=== PATIENT | female | born 1930 | race Caucasian/White ===

== ENCOUNTER 2017-08-20 21:00 | Emergency (ER) | payer OTHER ==
--- NOTE | 2017-08-20 21:45 | EDPHY ---
H & P Time Seen by Provider: 08/20/17 21:10 HPI/ROS: This patient presents with dental infection. She admits that she has or bold tooth decay to left upper premolars and just return from 1 month in the [place]. Well EN route [place] the [place] She started developing dental pain and facial swelling. She called her dentist today was prescribed Amoxil 875 twice daily. She took her 1st dose of that early in the afternoon but complains of severe pain onset of mild facial swelling in the left cheek associated with this prompting her visit for further evaluation. Her daughter drove her in by private vehicle. She took ibuprofen Tylenol prior to arrival without significant improvement. She notes tenderness to percussion to the affected area and no other exacerbating factors. ROS: No fevers or chills. No other constitutional symptoms. HEENT: No dental trauma or facial trauma recently. Neuro: No headache. No confusion. No numbness or tingling. Pulmonary: No shortness of breath except baseline from her pulmonary fibrosis without change. Cardiovascular: No lightheadedness or chest pain. GI: No nausea vomiting 7 point ROS is otherwise negative Past Medical/Surgical History: Pulmonary fibrosis Colon cancer Social History: Just return from the [place]. No drug use. No alcohol use. Smoking Status: Never smoked Physical Exam: Physical Exam Vital signs are normal. General: No acute distress HEENT: Nose: Clear bilaterally. No sinus tenderness to percussion. She has mild left cheek swelling. Oropharynx: No erythema or exudates. No dysphonia. No drooling or stridor. She has to throw castañeda down to the gumline and left upper premolars with a fluctuance to the gum adjacent to this up past the buccal fold with mild associated cheek swelling. She has exquisite tenderness to the area. Eyes: Pupils equal and react to light. Extraocular motions are intact. Neck: Supple with no meningismus. No lymphadenopathy Lungs: Clear to auscultation bilaterally with no rales, rhonchi or wheeze. No respiratory distress. Cardiac: Regular rate and rhythm with no murmur gallop or rub Skin: No rash or pallor. Neuro: Alert with no focal deficits noted. Constitutional: Initial Vital Signs Temperature (C) 37.0 C 08/20/17 21:14 Heart Rate 90 08/20/17 21:14 Respiratory Rate 16 08/20/17 21:14 Blood Pressure 145/96 H 08/20/17 21:14 O2 Sat (%) 90 L 08/20/17 21:14 O2 Delivery Mode Room Air Allergies/Adverse Reactions: Sulfa (Sulfonamide Antibiotics) Allergy (Verified 08/20/17 21:12) Rash Home Medications: Medication Instructions Recorded Atenolol [Atenolol 25 mg] 25 mg PO DAILY 08/07/10 Levothyroxine [Levothroid, 100 mcg PO DAILY@1000 08/07/10 Synthroid] SIMVASTATIN [Zocor] 20 mg PO DAILY 08/07/10 Amoxicillin/Clavulanate Pot 875 mg PO BID #14 tab 08/20/17 [Augmentin 875 MG TAB (*)] Esbriet 08/20/17 Omeprazole 08/20/17 Ramipril 08/20/17 traMADol [Ultram 50 mg (*)] 50 - 100 mg PO Q4 PRN #12 tab 08/20/17 MDM/Departure - MDM Procedures: I&D dental abscess After verbal consent formed a dental block using a 50 50 mix of 0.5% Marcaine and 1% plain lidocaine, 27 gauge needle, 2.5 mL at the buccal fold superior to the affected teeth with relief of pain followed by incision of fluctuant area using a 11. Scalpel blade after cleaning with peroxide. There is a small amount of purulent discharge. tess [place] tech assisted by using [place] suction to the affected area during the procedure. Patient tolerated this well. There were no complications. Medications Given: Discontinued Medications Tramadol HCl (Ultram) 50 mg PO EDNOW ONE Stop: 08/20/17 21:47 Last Admin: 08/20/17 21:54 Dose: 50 mg ED Course/Re-evaluation: Discussion: Patient with dental abscess without evidence of significant facial cellulitis, [employer] infection or sepsis. Formed I&D with plan to switch her from Amoxil to Augmentin. Provided a script for this as well as script for tramadol. She will follow up with her dentist. She understands need to return emergency department should she develop worsening despite the treatment plan. - Depart Disposition: Home, Routine, Self-Care Clinical Impression: Dental abscess Condition: Good Instructions: Tramadol (By mouth), Dental Abscess (ED) Additional Instructions: Diagnosis: Dental abscess Plan: Continue ibuprofen Tylenol for pain Tramadol in addition if needed for pain that prevents sleep or severe despite ibuprofen Tylenol No driving, alcohol on tramadol. Stop the Amoxil and start Augmentin antibiotic 2 times a day. Take a probiotic and/or yogurt while on this to prevent diarrhea. Follow up with her dentist this week. Return emergency department if he develops fevers or worsening symptoms despite the treatment plan. Prescriptions: Amoxicillin/Clavulanate Pot [Augmentin 875 MG TAB (*)] 875 mg PO BID #14 tab traMADol [Ultram 50 mg (*)] 50 - 100 mg PO Q4 PRN #12 tab PRN Reason: breakthrough pain Referrals: Lulu Jc MD [Primary Care Provider] - As per Instructions
[2017-08-20] MEDS ORDERED: traMADol 50 MG TAB PO ONE (21:46)
[2017-08-20 22:13] VITALS: BP 138/83
== END 2017-08-20 22:01 | disposition home or self-care (01) ==
LOC: CED 21:00
PROC: 0C953ZZ Drainage of Upper Gingiva, Percutaneous Approach (ICD-10-PCS; principal; 2017-08-20)
DX: K04.7 Periapical abscess without sinus (principal); Z85.038 Personal history of other malignant neoplasm of large intestine

== ENCOUNTER 2017-11-20 09:46 | Day surgery (SDC) | payer OTHER ==
[2017-11-20] MEDS ORDERED: fentaNYL 100 MCG/2 ML INJ IVP PRN (10:09)
[2017-11-20] MEDS ORDERED: FLUMAZENIL 0.5 MG/5 ML MDV IVP PRN (10:09)
[2017-11-20] MEDS ORDERED: NALOXONE HCL 0.4 MG/ML INJ IVP PRN (10:09)
[2017-11-20] MEDS ORDERED: MIDAZOLAM 2 MG/2 ML VIAL IVP PRN (10:09)
[2017-11-20] MEDS ORDERED: MEPERIDINE 25 MG/ML SYR IVP PRN (10:09)
[2017-11-20] MEDS ORDERED: NS 1,000 ML IV SCH (10:15)
[2017-11-20 11:01] LABS: INR 1.14 (0.83-1.16); PROTIME(PATIENT) 14.8 SEC (12.0-15.0)
--- NOTE | 2017-11-20 11:39 | PDPROPOC ---
Sedation Plan of Care Sedation Plan of Care: vital signs stable, mental status noted, patient educated of risks, benefits, alternatives, patient can tolerate sedation ASA Classification: ASA 2 Planned drugs: fentanyl, midazolam Mallampati Score: Class 2 Mallampati Reference Image: Patient passed 3-3-2 rule?: Yes
--- NOTE | 2017-11-20 11:39 | PDRADPRE ---
Radiology History & Physical Indication for procedure: other (Right pelvic pain with lytic mass on PET/CT) Significant medical history: lung disease Surgical history: Hemicolectomy for colon cancer. Thoracic spine surgery for plasmacytoma Home medications: Levothyroxine [Levothroid, Synthroid] 100 mcg PO DAILY@1000 08/07/10 [Last Taken 11/20/17] SIMVASTATIN [Zocor] 20 mg PO DAILY 08/07/10 [Last Taken 11/19/17] Omeprazole 40 mg 08/20/17 [Last Taken 11/19/17] Ramipril 2.5 mg PO 08/20/17 [Last Taken 11/20/17] Allergies/Adverse Reactions: Sulfa (Sulfonamide Antibiotics) Allergy (Verified 08/20/17 21:12) Rash Mental status: A&Ox3 Heart exam: regular rate and rhythm Lungs exam: clear to auscultation Mallampati Score: Class 1
[2017-11-20] MEDS ORDERED: NALOXONE HCL 0.4 MG/ML INJ ONE (11:40)
[2017-11-20] MEDS ORDERED: FLUMAZENIL 0.5 MG/5 ML MDV IVP ONE (11:40)
[2017-11-20] MEDS ORDERED: fentaNYL 100 MCG/2 ML INJ ONE (11:41)
[2017-11-20] MEDS ORDERED: MIDAZOLAM 2 MG/2 ML VIAL ONE (11:41)
[2017-11-20] MEDS ORDERED: LIDOCAINE 1% 300 MG/30 ML SDV ONE (12:00)
[2017-11-20 14:03] VITALS: BP 123/73
== END 2017-11-20 13:40 | disposition home or self-care (01) ==
LOC: FIMAGING 09:46
PROVIDERS: ATTEND Internal Medicine Hematology & Oncology
PROC: 0QB23ZX Excision of Right Pelvic Bone, Percutaneous Approach, Diagnostic (ICD-10-PCS; principal; 2017-11-20 12:43)
DX: C90.30 Solitary plasmacytoma not having achieved remission (principal); Z85.038 Personal history of other malignant neoplasm of large intestine
CPT/HCPCS: 88184-90; 88185-91; J2250; J2310; J3010

== ENCOUNTER → 2017-12-16 | Outpatient (CLI) | payer OTHER | LOC: FIMAGING 11:03 | PROVIDERS: ATTEND Internal Medicine Hematology & Oncology | DX: Z13.820 Encounter for screening for osteoporosis (principal); M81.0 Age-related osteoporosis without current pathological fracture; Z78.0 Asymptomatic menopausal state; Z87.81 Personal history of (healed) traumatic fracture ==

== ENCOUNTER → 2018-03-09 | Outpatient (CLI) | payer OTHER | LOC: BMCIMAGING 14:20 | PROVIDERS: ATTEND Family Medicine | DX: S79.912A Unspecified injury of left hip, initial encounter (principal) ==

== ENCOUNTER → 2018-05-01 | Outpatient (CLI) | payer OTHER | LOC: FIMAGING 16:04 | PROVIDERS: ATTEND Internal Medicine Hematology & Oncology | DX: R94.4 Abnormal results of kidney function studies (principal); Z85.038 Personal history of other malignant neoplasm of large intestine ==

== ENCOUNTER 2018-06-24 18:16 | Inpatient (IN) | payer OTHER ==
[2018-06-24] MEDS ORDERED: NS 1,000 ML IV ONE (18:36)
--- NOTE | 2018-06-24 18:36 | EDPHY ---
H & P Stated Complaint: sent from urgent care, dyspnic, febrile, lethargic, vomiting Time Seen by Provider: 06/24/18 18:36 HPI/ROS: HPI CHIEF COMPLAINT: Worsening shortness of breath, cough, vomiting, fever HISTORY OF PRESENT ILLNESS: This is 88-year-old female she arrives to the emergency room from urgent care for progressively worsening shortness of breath , cough, vomiting, fever, lethargy. The patient has history of pulmonary fibrosis as well as multiple myeloma. She went to urgent care today and was referred to the emergency room for further evaluation. Urgent care reports that she had a temperature of a 102 degrees. She arrives to the emergency room coughing and vomiting. Past Medical History: Pulmonary fibrosis, multiple myeloma Past Surgical History: Denies recent surgery Social History: Denies drugs alcohol tobacco. Family History: Noncontributory ROS REVIEW OF SYSTEMS: 10 Systems were reviewed and negative with the exception of the elements mentioned in the history of present illness. Exam Constitutional triage nursing summary reviewed, vital signs reviewed, awake/ alert. Tachycardic Eyes normal conjunctivae and sclera, EOMI, PERRLA. HENT normal inspection, atraumatic, moist mucus membranes, no epistaxis, neck supple/ no meningismus, no raccoon eyes. Respiratory clear to auscultation bilaterally, normal breath sounds, no respiratory distress, no wheezing. Cardiovascular tachycardia, regular rhythm, no murmur, no edema, distal pulses normal. Gastrointestinal soft, non-tender, no rebound, no guarding, normal bowel sounds, no distension, no pulsatile mass. Genitourinary no CVA tenderness. Musculoskeletal no midline vertebral tenderness, full range of motion, no calf swelling, no tenderness of extremities, no meningismus, good pulses, neurovascularly intact. Skin pink, warm, & dry, no rash, skin atraumatic. Neurologic awake, alert and oriented x 3, AAOx3, moves all 4 extremities equally, motor intact, sensory intact, CN II-XII intact, normal cerebellar, normal vision, normal speech. Psychiatric normal mood/affect. Heme/Lymph/Immune no lymphadenopathy. Differential Diagnosis: Differential diagnosis includes but is not limited to: ACS, atypical chest pain, pneumothorax, pneumonia, pulmonary embolism, aortic dissection, congestive heart failure, tumor, musculoskeletal pain, esophageal pain, GERD, peptic ulcer disease, pancreatitis Medical Decision Making: Plan for this patient IV establishment with blood draw , Barbarab breathing treatment, EKG, troponin, BNP, blood cultures and lactic will be you her chest x-ray from urgent care. Re-evaluation: EKG interpretation by me on record in [employer] system. Impression time of EKG 1858, sinus tach 106, no signs of acute ischemia. CT angiogram of the chest shows pneumonia. Plan for hospital admission for pneumonia. Plan for admission for pneumonia Will repeat lactic acid. IV Rocephin and IV azithromycin given. IV fluid bolus. Updated family agree for admission. Spoke with Dr. Goldstein, agrees to admit 2149 Patient agrees for admission. Source: Patient - Personal History Current Tetanus/Diphtheria Vaccine: Yes Current Tetanus Diphtheria and Acellular Pertussis (TDAP): Yes Tetanus Vaccine Date: 2009 - Medical/Surgical History Hx Asthma: No Hx Chronic Respiratory Disease: Yes Hx Diabetes: No Hx Cardiac Disease: Yes Hx Renal Disease: No Hx Cirrhosis: No Hx Alcoholism: No Hx HIV/AIDS: No Hx Splenectomy or Spleen Trauma: No Other PMH: PMH:COLON CA, BACK INJ, PLASMACYTOMA, PULMONARY FIBROSIS, O2 AT NIGHT FOR SLEEP APNEA, ARYTHMIAS,. PSH: PART COLON REMOVED, BACK SURGERY, CARDIAC STRESS TEST, ECHO, - Social History Smoking Status: Never smoked Constitutional: Initial Vital Signs Heart Rate 114 H 06/24/18 18:22 Respiratory Rate 18 06/24/18 18:22 Blood Pressure 171/124 H 06/24/18 18:22 O2 Sat (%) 90 L 06/24/18 18:22 O2 Delivery Mode Nasal Cannula O2 (L/minute) 2 Allergies/Adverse Reactions: Sulfa (Sulfonamide Antibiotics) Allergy (Verified 08/20/17 21:12) Rash Home Medications: Medication Instructions Recorded SIMVASTATIN [Zocor] 20 mg PO DAILY 08/07/10 Omeprazole 40 mg PO DAILY 08/20/17 Acyclovir [Zovirax 200 mg (*)] 200 mg PO BID 06/24/18 Aspirin EC [Aspirin EC 81 mg (*)] 81 mg PO DAILY 06/24/18 Bortezomib [Velcade Sc Conc] 2.2 mg SC WE 06/24/18 Cholecalciferol Vit D3 [Vitamin D3 3,000 units PO DAILY 06/24/18 (*)] Cyanocobalamin [Vitamin B12 (*)] 1,000 mcg PO DAILY 06/24/18 Dexamethasone [Decadron 4 MG (*)] 12 mg PO WE 06/24/18 Herbals/Supplements -Info Only 1 ea PO DAILY 06/24/18 Levothyroxine [Synthroid 100 mcg 100 mcg PO DAILY06 06/24/18 (*)] Vit A/Vit C/Vit E/Zinc/Copper 1 each PO DAILY 06/24/18 [Preservision Tablet] Xgeva Injection 120 mg SC Q28D 06/25/18 Medical Decision Making - Data Points Laboratory Results: Laboratory Results 06/24/18 18:50 06/24/18 18:50 Medications Given: Acyclovir (Zovirax) 200 mg PO BID DALE Stop: 07/25/18 10:14 Last Admin: 06/25/18 11:32 Dose: 200 mg Aspirin Buffered (Aspirin Ec) 81 mg PO DAILY DALE Stop: 12/22/18 10:14 Last Admin: 06/25/18 11:32 Dose: 81 mg Cholecalciferol (Vitamin D) 3,000 units PO DAILY DALE Stop: 12/22/18 10:14 Last Admin: 06/25/18 11:32 Dose: 3,000 units Guaifenesin/Dextromethorphan (Robitussin Dm Oral Liquid) 10 ml PO Q4HRS PRN PRN Reason: Cough, Moderate Stop: 12/22/18 03:24 Last Admin: 06/25/18 11:33 Dose: 10 ml Levothyroxine Sodium (Synthroid) 100 mcg PO DAILY06 [facility] Stop: 12/22/18 10:14 Last Admin: 06/25/18 11:32 Dose: 100 mcg Prednisone (Prednisone) 40 mg PO DAILY DALE Stop: 12/22/18 14:14 Last Admin: 06/25/18 15:00 Dose: 40 mg Vitamin B Complex (Vitamin B12) 1,000 mcg PO DAILY DALE Stop: 12/22/18 10:14 Last Admin: 06/25/18 11:36 Dose: 1,000 mcg Discontinued Medications Acetaminophen (Tylenol) 1,000 mg PO EDNOW ONE Stop: 06/24/18 21:57 Last Admin: 06/24/18 21:57 Dose: 1,000 mg Albuterol/Ipratropium (Duoneb) 3 ml IH EDNOW ONE Stop: 06/24/18 18:45 Last Admin: 06/24/18 18:58 Dose: 3 ml Azithromycin (Zithromax) 250 mg PO DAILY DALE PRN Reason: Protocol Stop: 07/25/18 10:44 Last Admin: 06/25/18 12:05 Dose: Not Given Dexamethasone (Decadron) 12 mg PO WE DALE Stop: 12/22/18 10:14 Last Admin: 06/25/18 12:05 Dose: Not Given Sodium Chloride (Ns) 1,000 mls @ 0 mls/hr IV EDNOW ONE; Wide Open PRN Reason: Protocol Stop: 06/24/18 18:37 Last Admin: 06/24/18 19:06 Dose: Not Given Sodium Chloride (Ns) 500 mls @ 0 mls/hr IV ONCE ONE PRN Reason: Wide Open Stop: 06/24/18 19:06 Last Admin: 06/24/18 19:12 Dose: 500 mls Azithromycin 500 mg/ Sodium (Chloride) 255 mls @ 255 mls/hr IV EDNOW ONE PRN Reason: Protocol Stop: 06/24/18 22:31 Last Admin: 06/24/18 22:22 Dose: 255 mls Ceftriaxone Sodium 2 gm/ (Sodium Chloride) 50 mls @ 100 mls/hr IV EDNOW ONE PRN Reason: Protocol Stop: 06/24/18 22:01 Last Admin: 06/24/18 21:56 Dose: 50 mls Sodium Chloride (Ns) 500 mls @ 0 mls/hr IV ONCE ONE PRN Reason: Wide Open Stop: 06/24/18 21:45 Last Admin: 06/24/18 21:53 Dose: 500 mls Sodium Chloride (Ns) 1,000 mls @ 75 mls/hr IV CONT DALE Stop: 06/25/18 12:49 Last Admin: 06/25/18 00:19 Dose: 1,000 mls Ceftriaxone Sodium/Dextrose (Rocephin 1 Gm (Premix)) 50 mls @ 100 mls/hr IV DAILY DALE PRN Reason: Protocol Stop: 07/25/18 10:59 Last Admin: 06/25/18 12:05 Dose: Not Given Ibuprofen (Motrin) 400 mg PO EDNOW ONE Stop: 06/24/18 21:57 Last Admin: 06/24/18 21:57 Dose: 400 mg Ondansetron HCl (Zofran) 4 mg IVP EDNOW ONE Stop: 06/24/18 18:54 Last Admin: 06/24/18 18:57 Dose: 4 mg Ondansetron HCl (Zofran) 4 mg IVP EDNOW ONE Stop: 06/24/18 20:04 Last Admin: 06/24/18 20:04 Dose: 4 mg Point of Care Test Results: Chemistry 06/24/18 18:56 POC Troponin I 0.00 ng/mL ng/mL (0.00-0.08) Departure - Departure Disposition: [facility] Inpatient Acute Clinical Impression: Pneumonia, Hypoxia Condition: Fair
[2018-06-24] MEDS ORDERED: IPRATROPIUM/ALBUTEROL 3 ML DEYVIAL IH ONE (18:44)
[2018-06-24] MEDS ORDERED: ONDANSETRON 4 MG/2 ML VIAL IVP ONE ×2 (18:53→20:03)
[2018-06-24 19:01] LABS: PLATELET COUNT 142 10^3/uL (150-400)
[2018-06-24] MEDS ORDERED: NS 500 ML IV ONE ×2 (19:05→21:44)
[2018-06-24 19:10] LABS: INR 1.11 (0.83-1.16); PROTIME(PATIENT) 13.9 SEC (12.0-15.0)
[2018-06-24] MEDS ORDERED: IOPAMIDOL (ISOVUE 370) 100 ML BTL IV ONE (19:45)
[2018-06-24] MEDS ORDERED: ONDANSETRON 4 MG/2 ML VIAL ONE (19:58)
[2018-06-24] MEDS ORDERED: AZITHROMYCIN IV 500 MG in NS 250 ML IV ONE (21:32)
[2018-06-24] MEDS ORDERED: ACETAMINOPHEN 500 MG TAB ONE (21:55)
[2018-06-24] MEDS ORDERED: IBUPROFEN 200 MG TAB PO ONE ×2 (21:55→21:56)
[2018-06-24] MEDS ORDERED: ACETAMINOPHEN 500 MG TAB PO ONE (21:56)
[2018-06-24] MEDS ORDERED: ACETAMINOPHEN 325 MG TAB PO PRN (23:19)
[2018-06-24] MEDS ORDERED: ONDANSETRON DISINTEGRATING 4 MG TAB PO PRN (23:19)
[2018-06-24] MEDS ORDERED: ONDANSETRON 4 MG/2 ML VIAL IVP PRN (23:19)
[2018-06-24] MEDS ORDERED: NS 1,000 ML IV SCH (23:30)
[2018-06-25] MEDS ORDERED: BENZONATATE 100 MG CAP PO PRN (03:25)
[2018-06-25] MEDS: GUAIFENESIN/DM 10 ML UDCUP PO PRN ×3 (04:31→21:17)
[2018-06-25 04:33] LABS: PLATELET COUNT 101 10^3/uL (150-400)
--- NOTE | 2018-06-25 04:49 | GHP ---
[f rep st] HISTORY AND PHYSICAL DATE OF ADMISSION: 06/24/2018 PCP: Lulu Jc MD. SOURCE: Patient provides history. She does defer some questions to her daughter with whom she lives currently. EMR was reviewed and case discussed with ED provider. HISTORY OF PRESENT ILLNESS: This is a pleasant 88-year-old female with past medical history significant for radiation induced pulmonary fibrosis on oxygen at with SUE, multiple myeloma, hypothyroidism, hyperlipidemia, and a remote history of colon cancer status post surgery, radiation who presents to the emergency department today with complaints of several days of worsening cough and shortness of breath. Daughter reports the patient became ill with respiratory symptoms approximately 4-5 days ago on Saturday, today being Saturday. No known sick contacts. She began to have nonproductive cough, fevers and some vomiting. Patient also has been having increased progressive shortness of breath and wheezing. The fevers and chills began over the weekend. These were not measured at home. They were subjective and also patient having chills. In the emergency department, patient received DuoNeb, Tylenol, Azithromycin Rocephin, ibuprofen and Zofran for bilateral lower lobe and left upper lobe pneumonia. Since arrival to the floor, patient has had persistent cough. She has continued to have some wheezing, but that has improved following additional DuoNeb. The patient is requesting some cough medicine. REVIEW OF SYSTEMS: Ten systems reviewed, negative except as noted above. ALLERGIES: Sulfa. HOME MEDICATIONS: Pending pharmacy review omeprazole, aspirin, acyclovir, Co- Q10, glucosamine, PreserVision, vitamin B12, vitamin D, simvastatin, levothyroxine, Decadron, Prolia, Velcade. 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 PAST SURGICAL HISTORY: Partial colectomy, back surgery, deviated septum. FAMILY HISTORY: Negative for lung disease. Sister did have "heart issues". SOCIAL HISTORY: Patient currently living with her daughter. She does own a home just a few doors down. She does not smoke. She does have occasional alcohol intake and has recently started edibles with some improvement. PHYSICAL EXAM: VITAL SIGNS: Blood pressure 171/124, heart rate 114, respiratory rate 18, O2 saturation is 90% on 2 L by nasal cannula upon arrival to the emergency department. Current vital signs available blood pressure is 103/85, heart rate 111, respiratory rate 22, O2 saturation 87% on 2 L by nasal cannula, temperature 38.1. A bedside repeat temperature 36.8. GENERAL: No acute distress. Very pleasant, frail elderly female is lying quietly in bed. Her daughter is at bedside. HEAD: Normocephalic, atraumatic. EYES: Extraocular muscles appear grossly intact. No apparent scleral icterus. ENT: Mucous membranes appear slightly dry. No apparent nasal discharge. NECK: Supple. Trachea midline. CV: Regular rate and rhythm. Slightly distant sounds due to respiratory noises. No apparent murmurs, rubs, or gallops. RESPIRATORY: Unlabored breathing. The patient does have intermittent dry cough. She has diffuse mild wheezing, but good air movement. ABDOMEN: Obese soft, nontender to palpation. No rebound, guarding, or masses. Positive bowel sounds. : No suprapubic tenderness to palpation. No Callahan catheter in place. MUSCULOSKELETAL: The patient is able to move all extremities while lying in bed. NEURO: Grossly nonfocal, no facial drooping. Moves all extremities. PSYCH: Thought process content and questions do appear appropriate. Patient is quite fatigued, did defer some of her questions to her daughter. LABORATORY STUDIES: WBC 5.14, H and H is 12.7, 39.7. MCV of 103.4, platelet count 142, neutrophil percent 89.3%. PT 13.9, INR 1.11, PTT is 25.9. Initial lactic acid 2.4, repeat is 2.0. Sodium 137, potassium 4.3, chloride is 104, CO2 is 19, anion gap 12, BUN 19, creatinine is 1.1 GFR of 47, glucose 263, calcium is 8.6, magnesium is 1.8, total bilirubin is 0.5, conjugated 0.2, ALT is 18, AST is 22, alkaline phosphatase is 117. Troponin negative. Total protein 6.2, albumin is 4.1, lipase is 39. UA: Specific gravity of 1.020 with a pH of 5.0, protein 1+, leuk esterase 1+, WBCs 25-50, renal epithelial cells trace, glucose, 3+. CT angio of the chest showing suboptimal without definite pulmonary thromboemboli. Multiple myeloma thoracic spine, bilateral lower lobe left upper lobe pneumonia. No pleural effusion, pneumothorax, cardiomegaly, and coronary atherosclerosis. EKG reviewed myself. Sinus tachycardia in the 100s. QTc is 464. No acute ST changes. Borderline NV interval. ASSESSMENT AND PLAN: Pleasant 88-year-old female with history of pulmonary fibrosis who presents to the emergency department with complaints of cough, shortness of breath, fever, vomiting. 1. Bilateral pneumonia. The patient has been started on azithromycin Rocephin. She has not been hospitalized in the last 90 days. Blood cultures pending. Patient currently without a productive cough. 2. Sepsis without organ dysfunction. Patient meets criteria with fever, tachycardia, tachypnea, and lactic acidosis. Blood cultures as noted above. Antibiotics of Azithromycin and Rocephin. The patient's vital signs have improved. Lactic acid normalized after IV fluid bolus in the emergency department. Blood cultures pending. 3. Acute on chronic hypoxia. Continue with supplemental oxygen. We will hold off on addition of steroids at this time. 4. Hyperglycemia. The patient's previous A1c was 7.8. She does receive weekly dexamethasone which may be contributing. She is not currently on any antihyperglycemics. Blood sugars currently quite elevated. Will place patient on a low-dose sliding scale. 5. Obstructive sleep apnea. Continue oxygen supplementation. 6. Hypothyroidism, continue replacement. 7. Hyperlipidemia. Statin. 8. Gastroesophageal reflux disease. Continue omeprazole. 9. Fluid, electrolyte, nutrition, some gentle intravenous fluid hydration overnight. Electrolyte monitoring, replacement if needed. Diet as tolerated. 10. Prophylaxis: SCDs. Holding anticoagulation. Will consider Lovenox if patient should stay additional day. She does have a history of multiple myeloma. Current H and H are within acceptable limits. 11. Code status: DNR/DNI 12. Disposition: Patient has been admitted to observation status on the med surg floor. We will reassess in the morning. /[id number]/MODL MTDD
[2018-06-25] MEDS ORDERED: DEXAMETHASONE 4 MG TAB PO SCH (10:15)
[2018-06-25] MEDS ORDERED: AZITHROMYCIN 250 MG TAB PO SCH ×2 (10:45→21:00)
[2018-06-25] MEDS: LEVOTHYROXINE 100 MCG TAB PO SCH (11:32)
[2018-06-25] MEDS: ACYCLOVIR 200 MG CAP PO SCH ×2 (11:32→20:53)
[2018-06-25] MEDS: CHOLECALCIFEROL VIT D3 1,000 UNITS TAB PO SCH (11:32)
[2018-06-25] MEDS: ASPIRIN EC 81 MG TAB PO SCH (11:32)
[2018-06-25] MEDS: CYANO/VITAMIN B12 1000 MCG TAB PO SCH (11:36)
--- NOTE | 2018-06-25 14:11 | HOSPPROG ---
Hospitalist Progress Note Assessment/Plan: #Acute on chronic hypoxic resp failure +human metapneumovirus, CAP -antitussives, abx. Says nebs not helpful -trial pred #CAP: procalcitonin 8, cont IV CTX, azithro #Multiple myeloma #Mild DAIN: improved with gentle IVFs #Pulm fibrosis: follows with Dr. Apodaca #Mild lactic acidosis: resolved with fluids #Hypothyroidism: Lt4 Disp: inpatient admission for IV abx, pred. DC when clinically improved Additional direct care spent: 30min reviewing imaging/chart and evaluating pt. d /w Dr. Carrasquillo (11:00-11:30) Subjective: "wheezy" Objective: Vital Signs Temp Pulse Resp BP Pulse Ox 36.6 C 87 18 127/65 H 97 06/25/18 11:22 06/25/18 11:22 06/25/18 11:22 06/25/18 11:22 06/25/18 11:22 Microbiology 06/25/18 11:50 Respiratory Panel (PCR) - Final Nasal, Sinus - Swab Human Metapneumovirus Detected Laboratory Results 06/25/18 04:14 06/25/18 04:14 06/24/18 06/25/18 06/26/18 05:59 05:59 05:59 Intake Total 1320 Balance 1320 PT 13.9 SEC (12.0-15.0) 06/24/18 18:50 INR 1.11 (0.83-1.16) 06/24/18 18:50 - Time Spent With Patient Time Spent with Patient: greater than 25 minutes Time Spent with Patient: Greater than 25 minutes spent on this patients care, greater than 50% of time spent counseling, educating, and coordinating care regarding the above mentioned plan. - Physical Exam Constitutional: no apparent distress Eyes: PERRL Ears, Nose, Mouth, Throat: moist mucous membranes Cardiovascular: regular rate and rhythym Respiratory: rhonchi Gastrointestinal: normoactive bowel sounds, soft, non-tender abdomen Genitourinary: no bladder fullness Skin: warm Musculoskeletal: full muscle strength Neurologic: AAOx3, CN II-XII Intact ICD10 Worksheet Patient Problems: Problems Problem Status Onset Pneumonia Acute
--- NOTE | 2018-06-25 14:16 | GCON ---
[f rep st] CONSULTATION ONCOLOGY INITIAL VISIT REASON FOR VISIT: Evaluation and management of myeloma. 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 Bone marrow biopsy less than 5% polyclonal plasma cells. She underwent a kyphoplasty, followed by radiation and then did well up until about November 2017, when she developed a large plasmacytoma in her right pelvis. She was only having mild discomfort. She was treated with radiation and tolerated it well, but shortly after that , she developed a rapidly progressing and widespread myeloma and started on RVD-lite in March 2018 . At the time of treatment, her blood counts were significantly abnormal, particularly her chemistri es, which her creatinine was up to 1.3, calcium was 12.4 and total protein was up to 11.2. Her IgG h ad jumped in a 1-month period from 3 g to 6 g and her M spike had jumped from 2 g to 4.5 g. She was also having a lot of fatigue and mental status changes. She had trouble tolerating the treatment wit h a lot of anxiety and fatigue. Along with the chemotherapy, she was also treated with zoledronic ac id. Her creatinine actually worsened after starting treatment and peaked with a creatinine of 3 on M arch . Since then, it has been coming down. I just saw her last week and her creatinine was neil n to 1.1. Her IgG was down to 373, and her M spike was down to 0.2 g. We dropped the lenalidomide p ortion of the regimen and just continued on the Velcade and dexamethasone. She was admitted after having a 3 or 4-day history of worsening shortness of breath and cough. She w as also having some audible wheezing and began to have fever and chills over the weekend, although th ey were not specifically measured. Scan revealed what looked like could be a bilobed pneumonia. She was admitted to the hospital and started on intravenous antibiotics. This morning she is still whee zing, but feeling better than she did when she came in. ALLERGIES: Sulfa. HOME MEDICATIONS: She gets bortezomib through the office as well as denosumab in the office. She ta kes omeprazole, aspirin, acyclovir, herbs and supplements including vitamin D, simvastatin, levothyro xine, dexamethasone which she is taking 12 mg weekly. CHRONIC ILLNESSES: 1. Multiple myeloma as described in HPI. 2. Stage IIB colon cancer diagnosed in 2010, treated with partial colectomy and adjuvant FOLFOX. 3. Atherosclerotic heart disease diagnosed 2010. 4. High blood pressure. 5. Obstructive sleep apnea. 6. Hypothyroidism. 7. Hypercholesterolemia. 8. Early dementia. SURGICAL HISTORY: Includes a right hemicolectomy. FAMILY HISTORY: Negative for malignancy. Her mother of an NH and father from complication s of a hip replacement. Sister from coronary artery disease. She has 4 children. She is origi jelly from [place]. SOCIAL HISTORY: She occasionally has a glass of wine, but does not smoke. She is . She is r etired. REVIEW OF SYSTEMS: A 10-point review of systems performed, pertinent positives as per HPI, otherwise negative. PHYSICAL EXAM: VITAL SIGNS: Temperature is 36.6, pulse is 87, blood pressure is 127/65. On arrival , her T-max was 38.4. Pulse was 114, blood pressure was initially 171/124. GENERAL: She is an elder ly woman, mildly tachypneic and wheezing, but no distress. HEENT: Unremarkable. LUNGS: Reveal dif fuse bilateral wheezing and decreased breath sounds with slight crackles. CARDIAC: Tachycardic, but regular. ABDOMEN: Soft, nontender. EXTREMITIES: No edema. MUSCULOSKELETAL: Nontender over spin e. TIFFANIE: Reveals no peripheral lymphadenopathy. NEUROLOGICAL: Grossly intact. LABS: Relatively unremarkable. On arrival today her white count was 7300, hemoglobin is 10.5, plate let count 101,000. Chemistries are unremarkable. Creatinine was 1.1, now it is down to 1. Cultures are still negative. CT angiogram showed no evidence of pulmonary emboli, thromboemboli, changes in her thoracic spine con sistent multiple myeloma. Bilateral lower lobe and left upper lobe pneumonia and cardiomegaly and co ronary atherosclerosis. IMPRESSION: 1. IgG multiple myeloma, currently under good control on therapy. 2. Previous hypercalcemia due to myeloma, under good control with controlling disease and using bone health agents. 3. Acute pneumonia. Difficult to tell if it is bacterial or viral. I will review the CT scans to chelita martel sure there has been a significant change, especially since she has the underlying interstitial pn eumonitis. She had trouble tolerating high-dose dexamethasone, but prednisone if is needed for her w heezing, there is no absolute contraindication. We will hold off on her chemotherapy while she is in the hospital. I will follow along with you while she is in the hospital. /[id number]/MODL
[2018-06-25] MEDS: predniSONE 20 MG TAB PO SCH (15:00)
--- NOTE | 2018-06-25 16:16 | ASMTCMCOM ---
CM Note CM Note Notes: Pt is 88 yo M presents with PNA. Pt currently lives with her daughter in [place]. at Baseline is on 2LO2. OT saw pt today, recommending Home vs HHC. PT eval pending. CM to follow. Plan: TBD Date Signed: 06/25/2018 04:15 PM Electronically Signed By:ELEAZAR Wilkes
[2018-06-25] MEDS ORDERED: LORazepam 0.5 MG TAB PO PRN (17:24)
--- NOTE | 2018-06-25 18:19 | PDMN ---
Medical Necessity Medical necessity: [facility] M282 Pneumonia, A-2 days: 88 yo presents w/ cough and SOB. Eval reveals B/L PNA and sepsis w/ fever, tachycardia, tachypnea and elevated lactate. IVF, IV antibx, O2 to keep sats>90%. Initially OBS for workup /tx but pt cont w/ acute hypoxic resp fx requiring ongoing O2 and ongoing IV antibx beyond OBS care per [facility] criteria for PNA. Change to IP status 06/25/18@ 1038 per MD order. Hx Multiple myeloma, colon ca, HLD, hypothyroid, plasmacytoma, radiation pulm fibrosis, SUE w/ nocturnal O2, colectomy
[2018-06-25] MEDS: IPRATROPIUM/ALBUTEROL 3 ML DEYVIAL IH PRN (19:50)
[2018-06-25] MEDS ORDERED: CEPACOL LOZENGE PO PRN (22:09)
[2018-06-26] MEDS: IPRATROPIUM/ALBUTEROL 3 ML DEYVIAL IH PRN (05:15)
[2018-06-26] MEDS: LEVOTHYROXINE 100 MCG TAB PO SCH (06:42)
[2018-06-26] MEDS ORDERED: PRESERVISION AREDS2 FORMULA EYE VIT 1 EACH PO SCH (09:00)
[2018-06-26] MEDS ORDERED: PANTOPRAZOLE SODIUM 40 MG TAB PO SCH (09:00)
[2018-06-26] MEDS ORDERED: ATORVASTATIN CALCIUM 10 MG TAB PO SCH (09:00)
[2018-06-26] MEDS ORDERED: Herbals/Supplements -Info Only PO SCH (09:00)
[2018-06-26] MEDS: predniSONE 20 MG TAB PO SCH (09:26)
[2018-06-26] MEDS: GUAIFENESIN/DM 10 ML UDCUP PO PRN (09:27)
[2018-06-26] MEDS: CYANO/VITAMIN B12 1000 MCG TAB PO SCH (09:27)
[2018-06-26] MEDS: ACYCLOVIR 200 MG CAP PO SCH (09:27)
[2018-06-26] MEDS: CHOLECALCIFEROL VIT D3 1,000 UNITS TAB PO SCH (09:27)
[2018-06-26] MEDS: ASPIRIN EC 81 MG TAB PO SCH (09:27)
--- NOTE | 2018-06-26 10:53 | HOSPPROG ---
Hospitalist Progress Note Assessment/Plan: #Acute on chronic hypoxic resp failure +human metapneumovirus, CAP -antitussives, abx. Says nebs not helpful -day 2/ prednisone #CAP: procalcitonin 8, cont IV CTX, azithro #Multiple myeloma: currently controlled, on therapy #Mild DAIN: improved with gentle IVFs #Pulm fibrosis: follows with Dr. Apodaca #Mild lactic acidosis: resolved with fluids #Hypothyroidism: Lt4 Disp: inpatient admission for IV abx, pred. DC when clinically improved Objective: Vital Signs Temp Pulse Resp BP Pulse Ox 36.8 C 91 20 148/80 H 91 L 06/26/18 08:34 06/26/18 08:34 06/26/18 08:34 06/26/18 08:34 06/26/18 08:34 Microbiology 06/25/18 11:50 Respiratory Panel (PCR) - Final Nasal, Sinus - Swab Human Metapneumovirus Detected 06/25/18 06/26/18 06/27/18 05:59 05:59 05:59 Intake Total 1250 Output Total 500 Balance 750 PT 13.9 SEC (12.0-15.0) 06/24/18 18:50 INR 1.11 (0.83-1.16) 06/24/18 18:50 ICD10 Worksheet Patient Problems: Problems Problem Status Onset Hypoxia Acute Pneumonia Acute
[2018-06-26 12:10] VITALS: BP 151/87
--- NOTE | 2018-06-26 13:21 | PDIAF ---
- Diagnosis Diagnosis: PNA, viral URI Code Status: Do Not Resuscitate - Medication Management Discharge Medications: electronically signed and located in the Home Medication List. - Orders Services needed: Home Care, Physical Therapy, Occupational Therapy Home Care Face to Face: I certify that this patient was under my care and that I had the required [id number] encounter meeting the encounter requirements on the discharge day. My findings support the fact that the patient is homebound as defined in Home Care Face to Face Continued: CMS Chapter 7 Medicare Benefits Manual 30.1.1 , The condition of the patient is such that there exists a normal inability to leave home and consequently, leaving home would require a considerable and taxing effort. Isolation Type: Contact Isolation, Droplet Isolation Diet Recommendation: no restrictions on diet Diet Texture: Regular Texture Diet - Follow Up Care Current Providers and Referrals: Lulu Jc MD [Primary Care Provider] - As per Instructions
--- NOTE | 2018-06-26 13:42 | ASDISCHSUM ---
Discharge Information Plan Status:Home with No Needs Medically Cleared to Leave: Discharge Date: CM D/C Disposition:Home, Routine, Self-Care ADT D/C Disposition:Home, Routine, Self-Care Projected Discharge Date: Transportation at D/C:Family Discharge Delay Reason: Follow-Up Date: Discharge Slot: Final Diagnosis: Placement Information Patient Contact Information Contact Name:SANTOSH Relationship:Daughter Address: City: [facility] Phone: State/Zip Code: Email: Financial Information Financial Class:Medicare Advantage Plans Primary Plan Desc:[employer] PLANS Primary Plan Number:[id number] Secondary Plan Desc: Secondary Plan Number: Assessment Information LACE LACE Length of stay for Answers: 1 day current admission Comorbidities - select Answers: Opioid dependence all that apply / Chronic pain Other Notes: HLD; Hypothyroid # of Emergency department Answers: 1-2 visits in the last 6 months Score: 7 Date Signed: 06/26/2018 01:41 PM Electronically Signed By:Nadege Contreras [facility] CM Progress Note CM Note CM Note Notes: Pt is 88 yo M presents with PNA. Pt currently lives with her daughter in [place]. at Baseline is on 2LO2. OT saw pt today, recommending Home vs HHC. PT eval pending. CM to follow. Plan: TBD Date Signed: 06/25/2018 04:15 PM Electronically Signed By:ELEAZAR Wilkes Case Management Discharge Plan Note Case Management Discharge Discharge Order Complete? Answers: Yes Patient to Obtain Answers: Independently Medications Transportation Arranged Answers: Other Notes: son Family Notified Answers: Yes Notes: son was present Discharge Comments Notes: CM met with pt and son. Therapy's recommended HomeCare. Pt and son refuse HomeCare services. Pt lives with daughter and feels she has already completed pt. Date Signed: 06/26/2018 01:40 PM Electronically Signed By:Nadege Contreras Intervention Information
--- NOTE | 2018-06-26 13:44 | GDS ---
[f rep st] DISCHARGE SUMMARY DISCHARGE DIAGNOSES: 1. Human metapneumovirus upper respiratory infection. 2. Community-acquired pneumonia. 3. Multiple myeloma. 4. History of stage IIB colon cancer. 5. Atherosclerotic heart disease. 6. Hypertension. 7. Obstructive sleep apnea. 8. Hypothyroidism. 9. Hyperlipidemia. 10. Early dementia. 11. Pulmonary fibrosis. 12. Chronic hypoxemic respiratory failure, 2 liters. CONSULTATIONS: Oncology. HPI: 88-year-old female with MDS, pulmonary fibrosis, chronic hypoxemic respiratory failure on 2 L presents with shortness of breath, cough, fever, and lethargy. She had a reported temp of a 102, with productive cough. HOSPITAL COURSE BY PROBLEM: 1. Human metapneumovirus URI: Supportive care with antitussives. 2. Community-acquired pneumonia: Given symptoms and elevated procalcitonin, we will treat for community-acquired pneumonia for 5 days. Transition to cefdinir and doxcycline (prolonged Qtc) 3. Acute on chronic hypoxemic respiratory failure: Secondary to bacterial pneumonia and viral infection. This is improved. She is now at her baseline. 4. Multiple myelomas, stable. She is currently on treatment. 5. Pulmonary fibrosis. Follow up with her cherry sorter. 6. Mild DAIN. Resolved with IV fluids. 7. Mild lactic acidosis due to decreased p.o. intake, resolved with fluids. 8. Hypothyroidism. Levothyroxine. DISPOSITION: Patient is stable for discharge home with her son and home health care, PT, OT. NEW MEDICATIONS: Doxy, Cefdinir PHYSICAL EXAMINATION: VITAL SIGNS: Today, temperature 36.6, blood pressure 151 /87, heart rate in the 80s, respirations 20, 96% on 2 L. GENERAL: She is a much brighter today. HEENT: PERRLA. Moist mucous membranes. CV: Regular. LUNGS: Still rhonchorous, but improved air movement. ABDOMEN: Soft. : No Callahan. MUSCULOSKELETAL: 5/5 upper and lower extremity strength. NEURO: 2 through 12 intact. PSYCH: She is alert and answering questions appropriately. TIME SPENT ON DISCHARGE: Greater than 30 minutes bedside with family and patient and discussed case with Dr. Carrasquillo. /[id number]/MODL MTDD
--- NOTE | 2018-06-26 13:47 | SOAPPROG ---
SOTRACY Progress Note Assessment/Plan: E&M for myeloma * IgG multiple myeloma: Her disease is under good control with weekly Velcade and dexamethasone. She has been off Revlimid now for over a month. Hypercalcemia has resolved as well as her acute renal failure. Yesterday, she was due for dose of Velcade and Xgeva. I recommended holding the Velcade for this week and delaying her Xgeva until next week. * Viral pneumonia: She seems to be improving with a short course of steroids and supportive care. I agree with internal medicine of also treating her with concurrent oral antibiotics since she is at high risk of a secondary bacterial infection. * Interstitial pneumonitis: Her oxygen needs are back to her normal baseline. She is to follow-up with Dr. Apodaca. * Mild dementia: Her mental status is back to baseline. Subjective: She has multiple friends and her son visiting her today. She is feeling much better than when she came into the hospital. She still has some dyspnea with exertion but less wheezing. She is now back on her baseline oxygen needs. Objective: Vital Signs Temp Pulse Resp BP Pulse Ox 36.6 C 82 20 151/87 H 96 06/26/18 12:00 06/26/18 12:00 06/26/18 12:00 06/26/18 12:00 06/26/18 12:00 Microbiology 06/25/18 11:50 Respiratory Panel (PCR) - Final Nasal, Sinus - Swab Human Metapneumovirus Detected 06/25/18 06/26/18 06/27/18 05:59 05:59 05:59 Intake Total 1250 Output Total 500 Balance 750 PT 13.9 SEC (12.0-15.0) 06/24/18 18:50 INR 1.11 (0.83-1.16) 06/24/18 18:50 Microbiology 06/25/18 11:50 Nasal, Sinus - Swab Respiratory Panel (PCR) - Final Human Metapneumovirus Detected Physical Exam - Physical Exam General Appearance: no apparent distress Respiratory: crackles, No wheezing Cardiac/Chest: regular rate, rhythm ICD10 Worksheet Patient Problems: Problems Problem Status Onset Hypoxia Acute Pneumonia Acute
--- NOTE | 2018-07-01 07:54 | PQFORM ---
PHYSICIAN QUERY FORM Needs Your Response This query form is being sent to you to assure this patient record is coded properly. Please respond to the question below: BUSINESS EXCELLENCE MANAGER QUESTION: Dear Dr. Rodriguez, On her H&P, Dr. Gabbie Childs documents that the patient was admitted with sepsis without organ dysfunction. The patient meets criteria with fever, tachycardia, tachypnea, and lactic acidosis. The lactic acid normalized after IV fluid bolus in the ED. Based on the clinic findings and your professional judgment, can sepsis be added as a diagnosis to the discharge summary? ___x___ yes no unable to determine other Thank you for clarifying, AUGUSTA Lincoln HIM Coding INSTRUCTIONS FOR RESPONSE: Answer question by clicking on the "Edit Document" button. Move cursor to area below the stars. When complete, hit "Save." Click on the "Sign" button, then click "Sign" again. Type in your PIN and hit "Enter." MTDD
== END 2018-06-26 15:40 | disposition home health service (06) | DRG 871 ==
LOC: F1N 23:14 → OBSVTOIN 06-25 10:38
PROVIDERS: ADMIT Family Medicine; ATTEND Internal Medicine
DX: A41.9 Sepsis, unspecified organism (principal); J15.9 Unspecified bacterial pneumonia; J06.9 Acute upper respiratory infection, unspecified; B97.81 Human metapneumovirus as the cause of diseases classified elsewhere; J96.21 Acute and chronic respiratory failure with hypoxia; C90.00 Multiple myeloma not having achieved remission; N17.9 Acute kidney failure, unspecified; E87.2 Acidosis; J70.1 Chronic and other pulmonary manifestations due to radiation; W88.1XXA Exposure to radioactive isotopes, initial encounter; G47.33 Obstructive sleep apnea (adult) (pediatric); E03.9 Hypothyroidism, unspecified; E78.5 Hyperlipidemia, unspecified; F03.90 Unspecified dementia, unspecified severity, without behavioral disturbance, psychotic disturbance, mood disturbance, and anxiety; Z85.038 Personal history of other malignant neoplasm of large intestine; Z66 Do not resuscitate
CPT/HCPCS: 84484-ER; 96365; 97165-GO; G0378; J0456; J0696; J2405; J7512; Q9967

== ENCOUNTER → 2018-06-24 | Outpatient (CLI) | payer OTHER | LOC: BMCIMAGING 15:24 | PROVIDERS: ATTEND Family Medicine | DX: I50.9 Heart failure, unspecified (principal); I51.7 Cardiomegaly ==

== ENCOUNTER → 2018-07-16 | Outpatient (CLI) | payer OTHER | LOC: FIMAGING 11:34 ==

== ENCOUNTER → 2018-07-23 | Outpatient (CLI) | payer OTHER | LOC: EMCIMAGING 09:59 ==